=== PATIENT | male | born 1950 | race Caucasian/White ===

== ENCOUNTER 2020-02-21 17:25 | Emergency (ER) | payer OTHER ==
[2020-02-21 17:35] VITALS: BP 125/83; PULSE 98; TEMP 98.4; BMI 24.3
--- OUTSIDE RECORDS SUMMARY | 2020-02-21 17:46 | XMS ---
:1950 Author Organization [facility] Support Name Relationship Address Phone UE Unavailable Unavailable Unavailable [employer] [id number] [place] [id number] [place] [address] Re-disclosure Warning The records that you are about to access may contain information from federally- assisted alcohol or drug abuse programs. If such information is present, then the following federally mandated warning applies: This information has been disclosed to you from records protected by federal confidentiality rules (42 CFR part 2). The federal rules prohibit you from making any further disclosure of this information unless further disclosure is expressly permitted by the written consent of the person to whom it pertains or as otherwise permitted by 42 CFR part 2. A general authorization for the release of medical or other information is NOT sufficient for this purpose. The Federal rules restrict any use of the information to criminally investigate or prosecute any alcohol or drug abuse patient.The records that you are about to access may contain highly sensitive health information, the redisclosure of which is protected by Article 27-F of the [facility] Public Health law. If you continue you may haveaccess to information: Regarding HIV / AIDS; Provided by facilities licensed or operated by the [facility] Office of Mental Health; or Provided by the [facility] Office for People With Developmental Disabilities. If such information is present, then the following [facility] mandated warning applies: This information has been disclosed to you from confidential records which are protected by state law. State law prohibits you from making any further disclosure of this information without the specific written consent of the person to whom it pertains, or as otherwise permitted by law. Any unauthorized further disclosure in violation of state law may result in a fine or care home sentence or both. A general authorization for the release of medical or other information is NOT sufficient authorization for further disclosure. Insurance Providers Payer name Policy type Policy ID Covered Covered libertarian's Policy P benoit / Coverage libertarian ID relationship to [employer] ormation type [employer] MEDICAID [id number] SP [id number] IDA [id number] [facility] (MEDICARE)
[2020-02-21] MEDS ORDERED: ACETAMINOPHEN 500 MG TABLET (FP) PO ONE (18:52)
[2020-02-21] MEDS ORDERED: ACETAMINOPHEN 325 MG TABLET (FP) ONE (18:59)
[2020-02-21] MEDS ORDERED: SODIUM CHLORIDE 1,000 ML IV STA (19:22)
--- NOTE | 2020-02-21 19:46 | PDOC ---
History of Present Illness - General Chief Complaint: Urinary Problem Stated Complaint: SENT BY PCP Time Seen by Provider: 02/21/20 17:56 - History of Present Illness Initial Comments: HPI 69 yo F with PMH of HTN, HLD, COPD, [place] (20 years ago), and possible hx of "enlarged prostate" who presents with 2 week history of worsening lower abdominal pain (dull, moderate in severity) and difficulty urinating - associated with darker urine. Denies dysuria, no increased frequency, and penile discharge or lesions. Pt also reports he has had intermittent fevers/chills for the last 1-2 weeks (T max 102 at home) with associated cough (sometimes productive of "white phlegm"); he hasn't had any fevers since two days ago. A/w intermittent headaches, generalized weakness + gait unsteadiness, and fatigue. Denies sore throat, ear pain, chest pain, SOB, wheezing, n/v, diarrhea, constipation, or rashes, or changes in strength/sensation. Pt reports unclear history of "enlarged prostate" with possible evaluation by a Urologist; he will be following with a Urologist later, per the patient. He has never taken flomax or finasteride. PMHX: as in HPI PSHX: abd surgery for hiatal hernia Meds: atorvastatin, metoprolol succinate, amlodipine besylate, anoro ellipta inhaler Allergies: nkda Tob: quit smoking 2 weeks ago; 50 + pack year history prior to this Etoh: ocassional drinking prior; quit alocohol about 2 weeks ago Rec drugs: denies current use PCP: no current PCP ROS GENERAL/CONSTITUTIONAL: No fevers or chills currently (had them over the last two weeks). +Generalized weakness, unsteadiness HEAD, EYES, EARS, NOSE AND THROAT: No change in vision. No ear pain or discharge. No sore throat. CARDIOVASCULAR: No chest pain or shortness of breath RESPIRATORY: No wheezing, or hemoptysis. + cough GASTROINTESTINAL: No nausea, vomiting, diarrhea or constipation. GENITOURINARY: No dysuria, frequency, or change in urination. + dark urine MUSCULOSKELETAL: No joint or muscle swelling or pain. No neck or back pain. SKIN: No rash NEUROLOGIC: No headache, vertigo, dizziness, loss of consciousness, or change in strength/sensation. ENDOCRINE: No increased thirst. No abnormal weight change HEMATOLOGIC/LYMPHATIC: No anemia, easy bleeding, or history of blood clots. ALLERGIC/IMMUNOLOGIC: No hives or skin allergy. PE GENERAL: Awake, alert, and fully oriented, in no acute distress HEAD: No signs of trauma, normocephalic, atraumatic EYES: PERRLA, EOMI, sclera anicteric, conjunctiva clear ENT: Auricles normal inspection, hearing grossly normal, nares patent, oropharynx clear without exudates. Moist mucosa NECK: Normal ROM, supple, no lymphadenopathy, JVD, or masses LUNGS: No distress, speaks full sentences, clear to auscultation bilaterally HEART: Regular rate and rhythm, normal S1 and S2, no murmurs, rubs or gallops, peripheral pulses normal and equal bilaterally. ABDOMEN: Soft normoactive bowel sounds. No guarding, no rebound. No masses. + lower abd/suprapubic tenderness EXTREMITIES : Normal inspection, Normal range of motion, no edema. No clubbing or cyanosis. NEUROLOGICAL: Cranial nerves II through XII grossly intact. Normal speech, normal gait, no focal sensorimotor deficits SKIN: Warm, Dry, normal turgor, no rashes or lesions noted 02/21/20 19:26 02/21/20 20:13 Past History - Medical History Allergies/Adverse Reactions: Allergies Allergy/AdvReac Type Severity Reaction Status Date / Time No Known Allergies Allergy Verified 02/21/20 17:36 Home Medications: Ambulatory Orders Levofloxacin 750 mg PO DAILY 5 Days #5 tablet 02/22/20 Cardiac Disorders: Yes COPD: No HTN: Yes Hypercholesterolemia: Yes - Psycho-Social/Smoking History Smoking History: Never smoked *Physical Exam - Vital Signs Last Vital Signs Temp Pulse Resp BP Pulse Ox 98.4 F 98 H 18 125/83 98 02/21/20 17:29 02/21/20 17:29 02/21/20 17:29 02/21/20 17:29 02/21/20 17:29 ED Treatment Course - LABORATORY CBC & Chemistry Diagram: 02/21/20 20:00 02/21/20 20:00 - RADIOLOGY Radiology Studies Ordered: Category Date Time Status CHEST X-RAY PORTABLE* [RAD] Stat Radiology 02/21/20 19:14 Ordered KIDNEY / RENAL US [US] Stat Ultrasound 02/21/20 18:46 Ordered - Medications Given in the ED: ED Medications Discontinued Medications Generic Name Dose Route Start Last Admin Trade Name Vidhya PRN Reason Stop Dose Admin Acetaminophen 975 mg 02/21/20 18:52 02/21/20 19:02 Tylenol - PO 02/21/20 18:53 975 mg ONCE ONE Administration Medical Decision Making - Medical Decision Making MDM 69 yo F with PMH of HTN, HLD, COPD, [place] (20 years ago), and possible hx of "enla rged prostate" who presents with 2 week history of worsening lower abdominal pain (dull, moderate in severity) and difficulty urinating - associated with darker urine. Denies dysuria, no increased frequency, and penile discharge or lesions. Pt also reports he has had intermittent fevers/chills for the last 1-2 weeks (T max 102 at home) with associated cough (sometimes productive of "white phlegm"); he hasn't had any fevers since two days ago DDX including but not limited to: acute cystitis, pyelonephritis, BPH, other prostate pathology; also URI, pneumonia, r/o COVID- W/U: -CBC, CMP -Bladder US with approx 300 cc of volume -Renal US -UA/UCx -CXR -EKG -ID- swab TX: - PO tylenol 02/21/20 20:19 CXR will possible L sided consolidation; pt may have a community acquired pneumonia 02/21/20 20:23 Labs remarkable for K 3.0; BUN 35.5 Cr 1.5; AST 230 ALT 323 Alk Phos 231 Pt reports history of Hepatitis C in past; but does not recall if his LFTs have been elevated Will give 1 L NS; PO Kdur Will get RUQ US 02/21/20 20:37 UA 1+ ptn, 1+ blood, trace LE 02/21/20 21:10 RUQ US with cholelithiasis and sludge in the GB with moderate GB distention borderline GB wall thickening most likely consistent with GB dysmotility and suspicious for superimposed acute cholecystitis or chronic cholecystitis Will plan to admit pt. Pt made aware of all results and plan for for admission. 02/21/20 21:18 Pt eloped from hospital. Pulled out his IV before eloping. Security confirms pt eloped. Will prescribe pt his antibiotics (PO levofloxacin 750 mg x 5 days). Pt called to encourage return to hospital, to inform him regarding antibiotic prescription, and to provide strict return instructions. 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 Pt given reservation for [facility]; told to follow up results with PCP and appropriate specialists with referrals from PCP. 02/21/2020 23:10 Discharge - Discharge Information Problems reviewed: Yes Clinical Impression/Diagnosis: Urinary tract infection, Cholelithiasis, Community acquired pneumonia Condition: Good Disposition: ELOPED - Additional Discharge Information Prescriptions: Levofloxacin 750 mg PO DAILY 5 Days #5 tablet - Follow up/Referral - Patient Discharge Instructions Patient Printed Discharge Instructions: DI for Urinary Tract Infection (UTI) Additional Instructions: You were seen in the ED for complaints of difficulty urinating and lower abdominal pain; also with recent but not current fevers and cough. In the ED you were evaluated with lab tests, urine tests, chest x ray, and bladder US, and Abdominal US of the right upper quadrant (RUQ) Your results were: Lab Tests - Potassium 3.0 - you were given potassium by mouth to replete - Liver Function Tests were elevated (AST 230/ALT 323/ Alk Phos 231) - BUN 35.4, Creatinine 1.5 Urine Tests - mild urinary tract infection Bladder US - showed 300 mL; bladder not significantly distended Abdominal US of RUQ - There does not appear to be an acute need for immediate hospitalization. You are advised to follow up with your Primary Care Physician within 1 week. You were given a referral for a PCP You were given a prescription for Return to the ED immediately if you experience worsening pain when urinating, worsening abdominal pain, inability to urinate, persistent fevers, shortness of breath/difficulty breathing, or chest pain. - Post Discharge Activity
[2020-02-21 20:07] LABS: BASO % 0.3 % (0-2.0); EOS % 0.3 % (0-4.5); HEMATOCRIT 45.2 % (35.4-49); HEMOGLOBIN 15.4 GM/dL (11.7-16.9); LYMPH % 11.3 % (8-40); MEAN CELL VOLUME 94.1 fl (80-96); MONO % 5.5 % (3.8-10.2); NEUT % 82.6 % (42.8-82.8); PLATELET COUNT 239 K/MM3 (134-434); WHITE BLOOD COUNT 6.8 K/mm3 (4.0-10.0)
--- NOTE | 2020-02-21 20:22 | PDOC ---
Documentation entered by Jess Catherine SCRIBE, acting as scribe for Amber Grigsby MD. Amber Grigsby MD: This documentation has been prepared by the shalomibFlorin morris Lincy, SCRIBE, under my direction and personally reviewed by me in its entirety. I confirm that the documentation accurately reflects all work, treatment, procedures, and medical decision making performed by me. Attending Attestation - Resident Resident Name: KenneyRohit joyce - HPI HPI: 02/21/20 19:30 The patient is a 69-year-old female with a past medical history significant for HTN, HLD, COPD, [place] (20 years ago) hiatal hernia repair who presents to the emergency department with difficulty urinating. The patient reports several months of difficulty urinating, which worsened in the past 2 weeks. The patient reports associated symptoms of straining to urinate and generalized abdominal pain more felt in the lower quadrants. The patient reports additional complaints of fever, tmax of 102 (denies fever today), mild productive cough with white sputum production, congestion. Denies shortness of breath. Denies abdominal distention. - Physicial Exam PE: 02/21/20 20:09 GENERAL: Awake, alert, and fully oriented, in no acute distress LUNGS: Breath sounds equal, clear to auscultation bilaterally. HEART: Regular rate and rhythm. ABDOMEN: Soft, nontender, nondistended. NEUROLOGICAL: Cranial nerves grossly intact, normal mood and affect. Alert, awake and oriented. - Medical Decision Making 02/21/20 20:15 Pt presents to the Ed complaining of cough, fever and dysuria and frequency. states that he is having difficulty emptying his bladder, but post void residual only 300 cc. Differential includes UTI, COVID, other PNA. Will check labs and UA, reassess. 02/21/20 20:19 Discharge - Discharge Information Problems reviewed: Yes Clinical Impression/Diagnosis: Urinary tract infection, Cholelithiasis, Community acquired pneumonia Condition: Good Disposition: ELOPED - Additional Discharge Information Prescriptions: Levofloxacin 750 mg PO DAILY 5 Days #5 tablet - Follow up/Referral - Patient Discharge Instructions Patient Printed Discharge Instructions: DI for Urinary Tract Infection (UTI) Additional Instructions: You were seen in the ED for complaints of difficulty urinating and lower abdominal pain; also with recent but not current fevers and cough. In the ED you were evaluated with lab tests, urine tests, chest x ray, and bladder US, and Abdominal US of the right upper quadrant (RUQ) Your results were: Lab Tests - Potassium 3.0 - you were given potassium by mouth to replete - Liver Function Tests were elevated (AST 230/ALT 323/ Alk Phos 231) - BUN 35.4, Creatinine 1.5 Urine Tests - mild urinary tract infection Bladder US - showed 300 mL; bladder not significantly distended Abdominal US of RUQ - There does not appear to be an acute need for immediate hospitalization. You are advised to follow up with your Primary Care Physician within 1 week. You were given a referral for a PCP You were given a prescription for Return to the ED immediately if you experience worsening pain when urinating, worsening abdominal pain, inability to urinate, persistent fevers, shortness of breath/difficulty breathing, or chest pain. - Post Discharge Activity
[2020-02-21 20:37] LABS: ALBUMIN 2.7 g/dl (3.4-5.0); BLOOD UREA NITROGEN 35.4 mg/dL (7-18); CALCIUM 8.7 mg/dL (8.5-10.1); CREATININE 1.5 mg/dL (0.55-1.3); TOT PROT 6.9 g/dl (6.4-8.2)
[2020-02-21 20:46] LABS: BILIRUBIN,TOTAL 1.2 mg/dL (0.2-1)
[2020-02-21] MEDS ORDERED: POTASSIUM CHLORIDE TABS 20 MEQ TABLET.ER (FP) PO ONE ×2 (20:47→21:22)
[2020-02-21 20:50] LABS: EPI CELLS >36 /uL (0-25.1); HYALINE CASTS 10 /uL (0-3.1); PH,URINE 5.5 (5.0-8.0); URINE APPEARANCE CLEAR; URINE BACTERIA 8 /uL (0-1359); URINE BILIRUBIN NEGATIVE (NEGATIVE); URINE COLOR DK YELLOW; URINE GLUCOSE (UA) NEGATIVE (NEGATIVE); URINE KETONE NEGATIVE (NEGATIVE); URINE LEUK ESTERASE TRACE (NEGATIVE); URINE NITRITE NEGATIVE (NEGATIVE); URINE PROTEIN 1+ (NEGATIVE); URINE WBC 72 /uL (0-25.8)
[2020-02-21 22:39] LABS: URINE RBC 80.5 /uL (0-23.9)
--- NOTE | 2020-02-22 09:30 | EKG ---
Test Reason : Blood Pressure : / mmHG Vent. Rate : 079 BPM Atrial Rate : 288 BPM P-R Int : 000 ms QRS Dur : 090 ms QT Int : 414 ms P-R-T Axes : 000 025 048 degrees QTc Int : 474 ms ATRIAL FLUTTER WITH VARIABLE A-V BLOCK ANTERIOR INFARCT , AGE UNDETERMINED ABNORMAL ECG NO PREVIOUS ECGS AVAILABLE Confirmed by Leigh Silva ([id number]) on 02/22/2020 9:29:49 AM Referred By: Confirmed By:Leigh Silva
== END 2020-02-21 23:37 | disposition left against medical advice (07) ==
LOC: JER 17:25
PROC: 3E0337Z Introduction of Electrolytic and Water Balance Substance into Peripheral Vein, Percutaneous Approach (ICD-10-PCS; principal; 2020-02-21)
DX: N39.0 Urinary tract infection, site not specified (principal); K80.19 Calculus of gallbladder with other cholecystitis with obstruction; J18.9 Pneumonia, unspecified organism
CPT/HCPCS: 36415; 71045-TC-FY; 76705-TC; 80053; 81003; 85025; 87086; 93005; 93010; 99285-25; U0003